=== PATIENT | female | born 1940 | race Caucasian/White ===

== ENCOUNTER 2017-07-13 12:46 | Emergency (ER) | payer MEDICARE, SELFPAY ==
[2017-07-13 12:58] VITALS: BP 140/53; PULSE 53; RESP 22; TEMP 36.3; O2SAT 97; BMI 27.5
--- NOTE | 2017-07-13 13:19 | XR_ITS ---
XR chest portable HISTORY: ITS.REASON: Shortness of breath ORDERING PHYSICIAN: Angel Gusman MD PATIENT AGE: 76 years COMPARISON: 12/19/2016 FINDINGS: There is a moderate sized hiatal hernia. Normal heart size. No evidence of CHF or lobar consolidation. Minimal atelectatic or fibrotic changes are present in the left lung base. No acute bony anomalies. There is an area of sclerosis overlying the mid aspect of the scapula on the left and may be due to an old coracoid fracture. IMPRESSION: No acute finding. Moderate-sized hiatal hernia
[2017-07-13 13:36] LABS: Basophils # 0.1 K/mm3 (0-0.2); Basophils % 0.9 % (0.1-2.0); Eosinophils # 0.1 K/mm3 (0.0-0.4); Eosinophils % 0.9 % (0.1-12.0); Hematocrit 30.4 % (37.0-47.0); Hemoglobin 8.7 g/dL (12.2-16.2); Lymphocytes # 1.1 K/mm3 (0.7-4.5); Lymphocytes % 13.6 K/mm3 (10-50); Mean Corpuscular HGB Conc 28.5 g/dL (31.8-35.4); Mean Corpuscular Hemoglobin 19.9 pg (27.0-31.2); Mean Corpuscular Volume 69.9 fl (81-99); Mean Platelet Volume 8.2 fl (7.4-10.4); Monocytes # 0.5 K/mm3 (0.1-1.0); Monocytes % 6.1 % (1.7-9.3); Neutrophils # 6.4 K/mm3 (1.8-7.8); Neutrophils % 78.5 % (37.0-80.0); Platelet Count 456 K/mm3 (142-424); Red Blood Count 4.34 M/mm3 (4.20-5.40); Red Cell Distribution Width 17.2 % (11.5-17.5); White Blood Count 8.1 K/mm3 (4.8-10.8)
--- NOTE | 2017-07-13 13:51 | HMH.EDGENADL ---
ED Disposition Clinical Impression: Mobitz II Disposition: Xfer Critical Access Hosp Condition on Discharge: Fair Referrals: Hanny Wray [Referring] - Stephen Pfeiffer MD [Primary Care Provider] - Time of Disposition: 17:35 - Critical Care Critical Care Time: No Attestation: On , the high probability of a clinically significant, sudden or life threatening deterioration of the following system(s) required my full and direct attention, intervention and personal management. The time I documented below is in addition to time spent performing reported procedures but includes the following listed in this critical care notation. Medical Decision Making - Medical Records Medical records reviewed: Yes: I reviewed the patient's medical records. Vital Signs: 07/13/17 12:58 07/13/17 14:38 Temperature 97.3 F L Temperature Source Oral Pulse Rate [Orthostatic Lying Right Radial] 67 Pulse Rate [Orthostatic Sitting Right Radial] 41 L Pulse Rate [Right Radial] 53 L Respiratory Rate 22 Blood Pressure [Orthostatic Lying Right Arm] 122/68 Blood Pressure [Orthostatic Sitting Right Arm] 132/42 Blood Pressure [Right Arm] 140/53 Blood Pressure Mean [Right Arm] 82 Blood Pressure Source [Right Arm] Manual Cuff/ Auscultation 02 Sat by Pulse Oximetry 97 Oxygen Delivery Method Room Air - Lab Data Lab results reviewed: Yes: I reviewed the patient's lab results. Lab Results 07/13/17 13:20: WBC 8.1, RBC 4.34, Hgb 8.7 L, Hct 30.4 L, MCV 69.9 L, MCH 19.9 L, MCHC 28.5 L, RDW 17.2, Plt Count 456 H, MPV 8.2, Neut % (Auto) 78.5, Lymph % (Auto) 13.6, Maverick % (Auto) 6.1, Eos % (Auto) 0.9, Baso % (Auto) 0.9, Neut # (Auto) 6.4, Lymph # (Auto) 1.1, Maverick # (Auto) 0.5, Eos # (Auto) 0.1, Baso # (Auto) 0.1 07/13/17 13:20: Sodium 138, Potassium 4.3, Chloride 104, Carbon Dioxide 19 L, Anion Gap 19.3 H, BUN 26 H, Creatinine 1.76 H, Estimated Creat Clear 33, Estimated GFR 28 L, Est GFR ( Amer) 34 L, Glucose 113 H, Calcium 9.5, Total Bilirubin 0.5, AST 18, ALT 22, Alkaline Phosphatase 72, Total Creatine Kinase 86, CK-MB (CK-2) 1.0, CK-MB (CK-2) Rel Index 1.2, Troponin I < 0.02, Total Protein 7.5, Albumin 3.8, Globulin 3.7 H, Albumin/Globulin Ratio 1.0 L 07/13/17 13:20: Influenza Type A Ag Negative, Influenza Type B Ag Negative 07/13/17 14:10: Blood Type O Positive, Antibody Screen Negative Result diagrams: 07/13/17 13:20 07/13/17 13:20 Orders (Tests/Meds): ED MEDICATIONS Discontinued Medications Generic Name Dose Route Start Last Admin Trade Name Freq PRN Reason Stop Dose Admin Sodium Chloride 1,000 mls @ 999 mls/hr 07/13/17 14:15 07/13/17 15:21 Sod Chlor 0.9% 1000ml Bag IV 07/13/17 15:15 999 mls/hr .Q1H1M PEDRO Administration ORDERS Category Date Time Status XR chest portable Stat Exams 07/13/17 13:19 Taken - ECG Data Tracing #1 Initially read as Mobitz 1 but review by me looks like Mobitz 2 ECG initial impression date: 07/13/17 Normal Sinus Rhythm: No Arrhythmias present: other (Carla !!) Conduction abnormalities present: 2nd degree AV block, Mobitz II - [place] Inquiry Pt receiving controlled substance: No [place] was queried for this patient: No General Adult HPI - General Chief complaint: Shortness of Breath/Dyspnea Stated complaint: SOA nausea no appetite Time Seen by Provider: 07/13/17 13:52 Mode of Arrival: Family Vehicle Source of Information: Patient Limitations: Physical Limitations Description of Symptoms (Recalled from ER Triage Doc. by RN): Progressive weakness. SOA, dizziness and nausea today. History of anemia. Scheduled for upper and lower GI scope. - History of Present Illness HPI narrative: SOA, Nausea and weaknessover the past couple of days with no appetiteand has passed out 3 or 4 times in the past 24 hour. Can tell when she is about to pass out because she gets dizzy and then sits in chair so has not fallen and hurt herself - Related Data [facility]
[2017-07-13 14:03] LABS: Alanine Aminotransferase 22 U/L (12-78); Albumin Level 3.8 gm/dL (3.4-5.0); Alkaline Phosphatase 72 U/L (46-116); Anion Gap 19.3 mEq/L (5-15); Aspartate Amino Transferase 18 U/L (15-37); Bilirubin,Total 0.5 mg/dL (0.2-1.0); Blood Urea Nitrogen 26 mg/dL (7-18); CKMB Relative Index 1.2 U/L (0-4.0); Calcium 9.5 mg/dL (8.5-10.1); Carbon Dioxide 19 mmol/L (21.0-32.0); Chloride 104 mmol/L (98-107); Creatine Kinase 86 U/L (26-192); Creatinine Clearance Estimated 33 mL/min (0-300); Creatinine,Serum 1.76 mg/dL (0.55-1.02); Estimated Glomerular Filt Rate 28 ml/min (>60); GFR (African American) 34 ML/MIN (>60); Globulin 3.7 gm/dl (1.3-3.2); Glucose 113 mg/dL (74-106); Potassium 4.3 mmoL/L (3.5-5.1); Sodium 138 mmol/L (136-145); Total Protein,Serum 7.5 gm/dL (6.4-8.2); Troponin I < 0.02 ng/ml (0.00-0.06)
[2017-07-13 14:38] VITALS: BP 122/68; BP 132/42; PULSE 41; PULSE 67
--- NOTE | 2017-07-13 14:40 | PC.NURSE ---
Art MUNOZ observed Pt's EKG and spoke to Dr Gusman about pt's cardiac status. MD aware of Pt' s heart block.
--- NOTE | 2017-07-13 15:09 | PC.NURSE ---
1445- on the phone with .
--- NOTE | 2017-07-13 15:35 | PC.NURSE ---
hospitialist at [facility] has been paged Jen Jeronimo
--- NOTE | 2017-07-13 15:54 | PC.NURSE ---
Dr Li has accepted pt at [facility] waiting application software developer back with bed assignment
[2017-07-13 19:01] VITALS: BP 92/37; PULSE 40; RESP 18; TEMP 37.1; O2SAT 99
== END 2017-07-13 18:45 | disposition short-term general hospital (02) ==
PROVIDERS: Emergency Provider General Practice; Family Provider Internal Medicine Adolescent Medicine; PCP Internal Medicine Adolescent Medicine
DX: I44.1 Atrioventricular block, second degree (principal); Z79.899 Other long term (current) drug therapy; R42 Dizziness and giddiness
CPT/HCPCS: 36415; 71045; 80053; 82550; 82553; 84484; 85025; 86850; 87275; 87276; 93005; 93041; 96365; 96366; 99283

== ENCOUNTER → 2017-08-24 12:11 | Outpatient (CLI) | payer MEDICARE, SELFPAY ==
[2017-08-24 12:45] LABS: Alanine Aminotransferase 20 U/L (12-78); Albumin Level 4.1 gm/dL (3.4-5.0); Albumin/Globulin Ratio 1.1 (1.1-1.8); Alkaline Phosphatase 83 U/L (46-116); Aspartate Amino Transferase 23 U/L (15-37); Bilirubin,Total 0.4 mg/dL (0.2-1.0); Blood Urea Nitrogen 29 mg/dL (7-18); Calcium 9.4 mg/dL (8.5-10.1); Carbon Dioxide 29 mmol/L (21.0-32.0); Chloride 101 mmol/L (98-107); Creatinine,Serum 1.53 mg/dL (0.55-1.02); Estimated Glomerular Filt Rate 33 ml/min (>60); GFR (African American) 40 ML/MIN (>60); Globulin 3.8 gm/dl (1.3-3.2); Glucose 99 mg/dL (74-106); Sodium 139 mmol/L (136-145); Total Protein,Serum 7.9 gm/dL (6.4-8.2)
[2017-08-24 12:47] LABS: Basophils # 0.1 K/mm3 (0-0.2); Basophils % 0.9 % (0.1-2.0); Eosinophils # 0.3 K/mm3 (0.0-0.4); Eosinophils % 4.4 % (0.1-12.0); Hematocrit 43.4 % (37.0-47.0); Hemoglobin 13.1 g/dL (12.2-16.2); Lymphocytes # 1.1 K/mm3 (0.7-4.5); Lymphocytes % 15.8 K/mm3 (10-50); Mean Corpuscular HGB Conc 30.3 g/dL (31.8-35.4); Mean Corpuscular Hemoglobin 26.1 pg (27.0-31.2); Mean Platelet Volume 7.4 fl (7.4-10.4); Monocytes # 0.3 K/mm3 (0.1-1.0); Monocytes % 4.5 % (1.7-9.3); Neutrophils % 74.4 % (37.0-80.0); Platelet Count 263 K/mm3 (142-424); Red Blood Count 5.05 M/mm3 (4.20-5.40); Red Cell Distribution Width 23.1 % (11.5-17.5); White Blood Count 6.7 K/mm3 (4.8-10.8)
== END ==
PROVIDERS: Visit Provider Nurse Practitioner Family
DX: N28.9 Disorder of kidney and ureter, unspecified (principal); D50.9 Iron deficiency anemia, unspecified
CPT/HCPCS: 36415; 80053; 85025

== ENCOUNTER → 2018-03-22 12:13 | Outpatient (CLI) | payer MEDICARE, SELFPAY ==
[2018-03-22 13:06] LABS: Basophils % 0.4 % (0.1-2.0); Eosinophils # 0.2 K/mm3 (0.0-0.4); Eosinophils % 2.7 % (0.1-12.0); Hematocrit 44.9 % (37.0-47.0); Hemoglobin 14.6 g/dL (12.2-16.2); Lymphocytes # 1.2 K/mm3 (0.7-4.5); Lymphocytes % 17.4 K/mm3 (10-50); Mean Corpuscular HGB Conc 32.5 g/dL (31.8-35.4); Mean Corpuscular Hemoglobin 28.5 pg (27.0-31.2); Mean Corpuscular Volume 87.7 fl (81-99); Mean Platelet Volume 7.4 fl (7.4-10.4); Monocytes # 0.3 K/mm3 (0.1-1.0); Monocytes % 4.6 % (1.7-9.3); Neutrophils # 5.2 K/mm3 (1.8-7.8); Neutrophils % 74.9 % (37.0-80.0); Platelet Count 225 K/mm3 (142-424); Red Blood Count 5.11 M/mm3 (4.20-5.40); Red Cell Distribution Width 14.7 % (11.5-17.5); White Blood Count 6.9 K/mm3 (4.8-10.8)
[2018-03-22 14:59] LABS: Alanine Aminotransferase 22 U/L (12-78); Albumin Level 4.2 gm/dL (3.4-5.0); Albumin/Globulin Ratio 1.2 (1.1-1.8); Alkaline Phosphatase 84 U/L (46-116); Anion Gap 18.2 mEq/L (5-15); Bilirubin,Total 0.6 mg/dL (0.2-1.0); Blood Urea Nitrogen 22 mg/dL (7-18); Calcium 9.7 mg/dL (8.5-10.1); Carbon Dioxide 24 mmol/L (21.0-32.0); Chloride 101 mmol/L (98-107); Chol/HDL Ratio 2.2 (1-3.5); Cholesterol 184 mg/dL (140-200); Creatinine,Serum 1.29 mg/dL (0.55-1.02); Estimated Glomerular Filt Rate 40 ml/min (>60); GFR (African American) 48 ML/MIN (>60); Globulin 3.6 gm/dl (1.3-3.2); Glucose 96 mg/dL (74-106); HDL Cholesterol 82 mg/dL (29-89); LDL Cholesterol 75 mg/dL (0-130); Sodium 139 mmol/L (136-145); Thyroid Stimulating Hormone 2.03 uIU/ml (0.358-3.740); Total Protein,Serum 7.8 gm/dL (6.4-8.2); Triglycerides 137 mg/dL (30-200); VLDL Cholesterol 27 mg/dL (0-40)
[2018-03-22 15:09] LABS: Potassium 4.2 mmoL/L (3.5-5.1)
[2018-03-22 15:10] LABS: Aspartate Amino Transferase 20 U/L (15-37)
== END ==
PROVIDERS: PCP Internal Medicine Adolescent Medicine; Visit Provider Internal Medicine Adolescent Medicine
DX: E78.5 Hyperlipidemia, unspecified (principal); E11.9 Type 2 diabetes mellitus without complications; E03.9 Hypothyroidism, unspecified; D50.9 Iron deficiency anemia, unspecified
CPT/HCPCS: 36415; 80053; 80061; 83036; 84443; 85025

== ENCOUNTER → 2018-08-23 13:05 | Outpatient (CLI) | payer MEDICARE, SELFPAY ==
[2018-08-23 14:12] LABS: Basophils # 0.1 K/mm3 (0-0.2); Basophils % 1.2 % (0.1-2.0); Eosinophils # 0.2 K/mm3 (0.0-0.4); Eosinophils % 2.4 % (0.1-12.0); Hematocrit 46.5 % (37.0-47.0); Hemoglobin 14.8 g/dL (12.2-16.2); Lymphocytes # 1.2 K/mm3 (0.7-4.5); Lymphocytes % 18.4 % (10-50); Mean Corpuscular HGB Conc 31.8 g/dL (31.8-35.4); Mean Corpuscular Hemoglobin 28.6 pg (27.0-31.2); Mean Platelet Volume 7.3 fl (7.4-10.4); Monocytes # 0.4 K/mm3 (0.1-1.0); Monocytes % 5.6 % (1.7-9.3); Neutrophils # 4.9 K/mm3 (1.8-7.8); Neutrophils % 72.4 % (37.0-80.0); Platelet Count 268 K/mm3 (142-424); Red Blood Count 5.17 M/mm3 (4.20-5.40); White Blood Count 6.8 K/mm3 (4.8-10.8)
[2018-08-23 15:27] LABS: Alanine Aminotransferase 18 U/L (12-78); Albumin Level 4.3 gm/dL (3.4-5.0); Albumin/Globulin Ratio 1.3 (1.1-1.8); Alkaline Phosphatase 76 U/L (46-116); Anion Gap 15.4 mEq/L (5-15); Aspartate Amino Transferase 20 U/L (15-37); Bilirubin,Total 0.5 mg/dL (0.2-1.0); Blood Urea Nitrogen 25 mg/dL (7-18); Calcium 9.4 mg/dL (8.5-10.1); Carbon Dioxide 28 mmol/L (21.0-32.0); Chloride 101 mmol/L (98-107); Chol/HDL Ratio 2.8 (1-3.5); Cholesterol 188 mg/dL (140-200); Creatinine,Serum 1.41 mg/dL (0.55-1.02); Estimated Glomerular Filt Rate 36 ml/min (>60); GFR (African American) 44 ML/MIN (>60); Globulin 3.4 gm/dl (1.3-3.2); Glucose 103 mg/dL (74-106); HDL Cholesterol 67 mg/dL (29-89); LDL Cholesterol 72 mg/dL (0-130); Potassium 4.4 mmoL/L (3.5-5.1); Sodium 140 mmol/L (136-145); Thyroid Stimulating Hormone 1.58 uIU/ml (0.358-3.740); Total Protein,Serum 7.7 gm/dL (6.4-8.2); Triglycerides 246 mg/dL (30-200); VLDL Cholesterol 49 mg/dL (0-40)
[2018-08-23 20:47] LABS: Hemoglobin A1C 6.1 % (0.0-7.0)
== END ==
PROVIDERS: Visit Provider Internal Medicine Adolescent Medicine
DX: D50.9 Iron deficiency anemia, unspecified (principal); E78.5 Hyperlipidemia, unspecified; E03.9 Hypothyroidism, unspecified; E11.9 Type 2 diabetes mellitus without complications; Z79.84 Long term (current) use of oral hypoglycemic drugs
CPT/HCPCS: 36415; 80053; 80061; 83036; 84443; 85025

== ENCOUNTER → 2018-09-13 12:31 | Outpatient (CLI) | payer MEDICARE, SELFPAY ==
--- NOTE | 2018-09-13 12:54 | XR_ITS ---
XR DEXA axial skeleton COMPARISON: Previous DEXA scan 09/20/2014 HISTORY: Patient postmenopausal, patient currently utilizing Tums for calcium supplement TECHNIQUE: DEXA scanning lumbar spine and bilateral hips FINDINGS: Lumbar spine: Areas BMD L1-L4 is 1.368 g/sq cm the T score of 1.6. This is a 7.6% interval decline in BMD from the previous exam. Left hip: The total BMD is 0.857 g/sq cm the T score -1.2 and the left femoral neck is 0.830 g/sq cm with a T score -1.5. Right hip: A total BMD is 0.817 g/sq cm the T score -1.5 in the right femoral neck is 0.73 g/sq cm the T score -1.8. The total mean BMD is a 9.1% interval decline from the previous study. IMPRESSION: Normal study lumbar spine, osteopenia range for both hips with interval changes from the previous study as described, suggest a follow-up study in 2 years
== END ==
PROVIDERS: PCP Internal Medicine Adolescent Medicine; Visit Provider Internal Medicine Adolescent Medicine
DX: M81.0 Age-related osteoporosis without current pathological fracture (principal)
CPT/HCPCS: 77080

== ENCOUNTER → 2020-03-08 14:09 | Outpatient (CLI) | payer MEDICARE, SELFPAY ==
[2020-03-08 14:23] LABS: Basophils # 0.1 K/mm3 (0-0.2); Eosinophils # 0.2 K/mm3 (0.0-0.4); Eosinophils % 1.9 % (0.1-12.0); Hemoglobin 9.2 g/dL (12.2-16.2); Lymphocytes # 1.1 K/mm3 (0.7-4.5); Lymphocytes % 12.2 % (10-50); Mean Corpuscular HGB Conc 27.1 g/dL (31.8-35.4); Mean Corpuscular Volume 77.4 fl (81-99); Mean Platelet Volume 8.4 fl (7.4-10.4); Monocytes # 0.4 K/mm3 (0.1-1.0); Monocytes % 4.6 % (1.7-9.3); Neutrophils # 7.2 K/mm3 (1.8-7.8); Neutrophils % 80.2 % (37.0-80.0); Platelet Count 319 K/mm3 (142-424); Red Cell Distribution Width 16.7 % (11.5-17.5); White Blood Count 8.9 K/mm3 (4.8-10.8)
[2020-03-08 15:36] LABS: Iron 21 ug/dL (37-170)
[2020-03-08 15:47] LABS: Total Iron Binding Capacity 453 ug/dL (265-497)
[2020-03-08 16:12] LABS: Ferritin 7.27 ng/ml (11.1-264)
== END ==
PROVIDERS: Visit Provider Internal Medicine Medical Oncology
DX: D64.9 Anemia, unspecified (principal)
CPT/HCPCS: 36415; 82728; 83540; 83550; 85025

== ENCOUNTER 2020-03-13 12:49 | Outpatient (CLI) | payer MEDICARE, SELFPAY ==
[2020-03-13 13:13] VITALS: BP 160/82; PULSE 81; RESP 18; O2SAT 97
[2020-03-13 14:00] VITALS: BP 154/85; PULSE 76; RESP 18; TEMP 36.6; O2SAT 98
== END 2020-03-13 14:00 | disposition home or self-care (01) ==
LOC: INF 12:49
PROVIDERS: Visit Provider Internal Medicine Medical Oncology
DX: D50.9 Iron deficiency anemia, unspecified (principal)
CPT/HCPCS: 96365; J1439

== ENCOUNTER 2020-03-23 12:40 | Outpatient (CLI) | payer MEDICARE, SELFPAY ==
[2020-03-23 13:15] VITALS: BP 144/77; PULSE 72; RESP 18; TEMP 36.8; O2SAT 98
[2020-03-23 13:45] VITALS: BP 151/82; PULSE 75; RESP 18
== END 2020-03-23 14:00 | disposition home or self-care (01) ==
LOC: INF 12:44
PROVIDERS: Visit Provider Internal Medicine Medical Oncology
DX: D50.9 Iron deficiency anemia, unspecified (principal)
CPT/HCPCS: 96365; J1439